=== PATIENT | female | born 1990 ===

== ENCOUNTER 2018-03-07 23:01 | Emergency (ER) | payer OTHER ==
[~2018-03-07] VITALS: Ht 160 cm; Wt 135.9 kg
[2018-03-08] MEDS ORDERED: VALIUM5 MG PO (02:26)
[2018-03-08] MEDS ORDERED: NORCO 5/3251 TABLET PO (02:26)
[2018-03-08 02:45] VITALS: BP 132/82
== END 2018-03-08 02:46 | disposition home or self-care (01) ==
LOC: EME 23:01
DX: S39.012A Strain of muscle, fascia and tendon of lower back, initial encounter (principal); S80.01XA Contusion of right knee, initial encounter; S80.02XA Contusion of left knee, initial encounter; W17.89XA Other fall from one level to another, initial encounter; E78.5 Hyperlipidemia, unspecified; F32.9 Major depressive disorder, single episode, unspecified; F41.9 Anxiety disorder, unspecified; I10 Essential (primary) hypertension; J45.909 Unspecified asthma, uncomplicated
CPT/HCPCS: 72100; 73564; 99281; 99284